=== PATIENT | female | born 1955 | race Caucasian/White ===

== ENCOUNTER 2016-07-18 07:59 | Day surgery (SDC) | payer OTHER ==
[~2016-07-18 07:59] MED LIST: BACLOFEN20 M1 PO; CYCLOBENZAPRINE10 M1 PO; DURAGESIC1 PATC; DURAGESIC1 PATCH TOP; K-DUR10 MEQ; L-THYROXINE PO; LEVOTHYROXINE137 MC1 PO; OXYCONTIN10 M2 PO; PREMARIN0.625 MG; PREMARIN0.625 MG/T PO; ZOFRAN ODT4 MG/UDTAB PO
[2016-07-18 12:10] LABS: CSF GLUCOSE 56 mg/dl (40-75)
[2016-07-18 12:54] LABS: CSF APPEARANCE CLEAR (CLEAR); CSF COLOR COLORLESS (COLORLESS); CSF TUBE NUMBER CSF TUBE 2
[2016-07-18 12:55] LABS: CSF RBC CT 1 cmm (0); CSF WBC CT 3 cmm (0-10)
[2016-08-06] MEDS ORDERED: FISH OIL 11000 MG/CA PO (12:12)
[2016-08-06] MEDS ORDERED: CALCIUM 600 +1 EA21 PO (12:13)
[2016-08-06] MEDS ORDERED: MAGNESIUM (12:14)
== END 2016-07-18 14:35 ==
LOC: US 07:59 → SHSC 08:40
PROVIDERS: Psychiatry & Neurology Neurology
DX: M62.838 Other muscle spasm (principal); E04.1 Nontoxic single thyroid nodule; R20.8 Other disturbances of skin sensation; Z79.891 Long term (current) use of opiate analgesic; Z79.899 Other long term (current) drug therapy
CPT/HCPCS: J7030

== ENCOUNTER 2016-08-08 05:44 | Day surgery (SDC) | payer OTHER ==
[~2016-08-08 05:44] MED LIST changes: +CALCIUM 600 +1 EA21 PO; +FISH OIL 11000 MG/CA PO; +MAGNESIUM
[2016-08-08 06:55] LABS: INR 0.9 INR (0.9-1.1); PROTHROMBIN TIME 10.8 SECONDS (9.0-13.6)
[2016-08-08 07:01] LABS: BASO % 0.6 % (0-2); BASO ABSOLUTE COUNT 0.1 tho/cmm (0.0-0.2); EOS % 0.8 % (0-7); EOSINOPHIL ABSOLUTE COUNT 0.1 tho/cmm (0.0-0.7); HCT-HEMATOCRIT 42.9 % (34.0-49.0); HGB-HEMOGLOBIN 14.3 gm/dl (12.0-15.5); IMMATURE GRANULOCYTES ABSOLUTE 0.02 tho/cmm (0-0.03); IMMATURE GRANULOCYTES PERCENT 0.2 % (0-0.3); LYMPH ABSOLUTE COUNT 1.5 tho/cmm (0.8-4.5); MCHC MEAN CORPUSCULAR HGB CONC 33.3 % (32.0-36.0); MEAN PLATELET VOLUME 10.7 cmc (9.4-12.4); MONO % 8.2 % (0-12); MONOCYTE ABSOLUTE COUNT 0.9 tho/cmm (0.0-1.2); NEUTROPHILS % 76.2 % (40-80); PLATELET COUNT 322 tho/cmm (150-450); RED BLOOD COUNT 4.93 mil/cmm (4.00-5.20); RED CELL DISTRIBUTION WIDTH 13.8 % (12.4-16.4); WHITE BLOOD COUNT 10.5 tho/cmm (4.0-10.0)
== END 2016-08-08 10:45 ==
LOC: SHSB 05:44
PROVIDERS: Radiology Diagnostic Radiology
PROC: 0WBH3ZX Excision of Retroperitoneum, Percutaneous Approach, Diagnostic (ICD-10-PCS; principal; 2016-08-08)
DX: C85.13 Unspecified B-cell lymphoma, intra-abdominal lymph nodes (principal); Z79.899 Other long term (current) drug therapy; Z88.1 Allergy status to other antibiotic agents; Z88.8 Allergy status to other drugs, medicaments and biological substances; Z91.040 Latex allergy status; Z91.048 Other nonmedicinal substance allergy status; Z90.49 Acquired absence of other specified parts of digestive tract; Z90.710 Acquired absence of both cervix and uterus; Z90.89 Acquired absence of other organs; Z98.890 Other specified postprocedural states
CPT/HCPCS: J2250; J3010; J7030

== ENCOUNTER 2016-08-20 10:27 | Day surgery (SDC) | payer OTHER ==
[2016-08-20 11:31] LABS: BASO % 0.7 % (0-2); BASO ABSOLUTE COUNT 0.1 tho/cmm (0.0-0.2); EOS % 2.7 % (0-7); EOSINOPHIL ABSOLUTE COUNT 0.2 tho/cmm (0.0-0.7); HCT-HEMATOCRIT 43.6 % (34.0-49.0); HGB-HEMOGLOBIN 14.7 gm/dl (12.0-15.5); IMMATURE GRANULOCYTES ABSOLUTE 0.02 tho/cmm (0-0.03); IMMATURE GRANULOCYTES PERCENT 0.2 % (0-0.3); LYMPH % 35.8 % (20-45); LYMPH ABSOLUTE COUNT 3.1 tho/cmm (0.8-4.5); MCH (MEAN CORPUSCULAR HGB) 29.1 pg (28.0-32.0); MCHC MEAN CORPUSCULAR HGB CONC 33.7 % (32.0-36.0); MCV (MEAN CELL VOLUME) 86.2 fl (82.0-96.0); MEAN PLATELET VOLUME 10.4 cmc (9.4-12.4); MONO % 11.2 % (0-12); NEUTROPHIL ABSOLUTE COUNT 4.2 tho/cmm (1.6-8.0); NEUTROPHIL-AUTOMATED 4.2 tho/cmm (1.6-8.0); NEUTROPHILS % 49.4 % (40-80); PLATELET COUNT 307 tho/cmm (150-450); RED BLOOD COUNT 5.06 mil/cmm (4.00-5.20); RED CELL DISTRIBUTION WIDTH 14.1 % (12.4-16.4); WHITE BLOOD COUNT 8.5 tho/cmm (4.0-10.0)
[2016-08-20 11:37] LABS: INR 0.9 INR (0.9-1.1); PROTHROMBIN TIME 10.4 SECONDS (9.0-13.6)
== END 2016-08-20 16:15 ==
LOC: CTSCAN 10:27 → SHSB 10:37
PROVIDERS: Radiology Diagnostic Radiology
PROC: 07DR3ZX Extraction of Iliac Bone Marrow, Percutaneous Approach, Diagnostic (ICD-10-PCS; principal; 2016-08-20)
DX: C85.10 Unspecified B-cell lymphoma, unspecified site (principal); Z88.1 Allergy status to other antibiotic agents; Z88.8 Allergy status to other drugs, medicaments and biological substances; Z91.040 Latex allergy status; Z79.899 Other long term (current) drug therapy
CPT/HCPCS: C1830; G0364; J2250; J3010; J7030